=== PATIENT | male | born 1985 | race African-American/Black ===

== ENCOUNTER 2016-10-30 09:22 | Emergency (ER) | payer OTHER ==
[~2016-10-30] VITALS: Ht 182.9 cm; Wt 79.4 kg
[2016-10-30] MEDS ORDERED: IV NS 1000 ML 1,000 ML IV ONE (09:45)
--- NOTE | 2016-10-30 09:55 | NUR ---
deepak at [facility].
--- NOTE | 2016-10-30 09:55 | NUR ---
pt refused the ekg, heplock amd blood draw. notified.
[2016-10-30] MEDS ORDERED: HYDROCODONE/APAP 5-325MG TABLET PO ONE (11:30)
[2016-10-30] MEDS ORDERED: KETOROLAC TROMETHAMINE 60 MG INJ IM ONE (11:30)
--- NOTE | 2016-10-30 11:50 | NUR ---
Patient discharged to home in stable conditon. Written and verbal after care instructions given. Patient verbalizes understanding of instructions.crutches and fgait trainng provided per md order.
[2016-10-30 11:54] VITALS: BP 119/77
== END 2016-10-30 11:54 | disposition home or self-care (01) ==
LOC: ER 09:22
DX: S80.11XA Contusion of right lower leg, initial encounter (principal); V23.4XXA Motorcycle driver injured in collision with car, pick-up truck or van in traffic accident, initial encounter; Y93.89 Activity, other specified; Y99.8 Other external cause status; Y92.89 Other specified places as the place of occurrence of the external cause
CPT/HCPCS: 73590; 73600; 73620; 93005; 99284; A4663